=== PATIENT | male | born 1975 | race Caucasian/White ===

== ENCOUNTER 2017-05-01 09:07 | Emergency (ER) | payer OTHER ==
[~2017-05-01] VITALS: Ht 167.6 cm; Wt 70.0 kg
[2017-05-01 09:11] VITALS: TEMP 36.5; Ht 167.6 cm; Wt 70.0 kg
[2017-05-01] MEDS ORDERED: DIPHTHERIA/TETANUS/PERTUSSIS 0.5 ML SYR/VIAL IM. ONE (09:30)
--- NOTE | 2017-05-01 10:02 | DIAGNOSTIC IMAGING REPORT ---
LEFT FEMUR 2 VIEWS ROUTINE CLINICAL HISTORY: Left knee trauma, distal leg numb. Knee abrasion. COMPARISON: None FINDINGS: No acute fracture of the left femur is identified. Alignment of the left hip and knee is anatomic. IMPRESSION: No acute fracture of the left femur. Electronically signed by: Obed German M.D. 05/01/2017 10:00 AM Dictated Date/Time: 05/01/2017 10:00 AM
--- NOTE | 2017-05-01 10:03 | DIAGNOSTIC IMAGING REPORT ---
LEFT KNEE SINGLE VIEW CLINICAL HISTORY: Left knee pain status post trauma COMPARISON: None. DISCUSSION: A sunrise view of the patella is provided for interpretation. No fractures are visualized. There is no subluxation. IMPRESSION: No fractures or subluxations identified on this single sunrise view. Electronically signed by: Albert Veloz M.D. 05/01/2017 10:01 AM Dictated Date/Time: 05/01/2017 10:00 AM
--- NOTE | 2017-05-01 10:03 | DIAGNOSTIC IMAGING REPORT ---
LEFT TIBIA/FIBULA 2 VIEWS ROUTINE CLINICAL HISTORY: Left knee trauma, distal leg numb. Knee abrasion. Trauma. Pain. COMPARISON: None. DISCUSSION: The bones and joint spaces appear intact. There is no evidence of fracture, dislocation or bony disease. There is no evidence for soft tissue swelling. IMPRESSION: Negative study. Electronically signed by: Tomas Newell M.D. 05/01/2017 10:02 AM Dictated Date/Time: 05/01/2017 10:02 AM
--- NOTE | 2017-05-01 10:34 | EMERGENCY ROOM VISIT NOTE ---
History First contact with patient: 09:13 Chief Complaint: KNEEPAIN Stated Complaint: RIGHT KNEE INJURY History of Present Illness The patient is a 41 year old male who presents to the Emergency Room via private vehicle accompanied by fellow employee with complaints of "right knee injury". 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 He states that this slipped, and struck his left kneecap region pinning his leg to the target. He notes the pain as a 10/10. He is shaking from the pain. His tetanus is not up-to-date. Review of Systems A complete 6-point Review of Systems was discussed with the patient, with pertinent positives and negatives listed in the History of Present Illness. All remaining Review of Systems questions can be considered negative unless otherwise specified. Past Medical/Surgical History No pertinent past medical history. Family History No pertinent family history. Social History Smoking Status: Current Every Day Smoker Social History: Patient is currently employed. Current/Historical Medications No Active Prescriptions or Reported Meds Allergies Coded Allergies: No Known Allergies (Unverified , 05/01/17) Physical Exam Vital Signs Date Time Temp Pulse Resp B/P (MAP) Pulse Ox O2 Delivery O2 Flow Rate FiO2 05/01/17 09:11 36.5 56 18 158/78 99 Room Air Physical Exam VITAL SIGNS - Vital signs and nursing notes were reviewed. Patient is afebrile , hypertensive at 158/78, non-tachycardic and is saturating well on room air 99% . GENERAL -41-year-old male appearing his stated age who is in no acute distress. Communicates well with provider and answers questions appropriately. SKIN - Without rashes. There is a small abrasion noted to the skin overlying the left anterior patella. EXTREMITIES - No clubbing or peripheral cyanosis. No pretibial edema present. He is neurovascularly intact left lower extremity. There is tenderness to palpation overlying the left greater trochanter, left femur region, left knee and distal regions. There is near full range of motion. +5/5 strength noted in UE/LE bilaterally. Medical Decision & Procedures ER Provider Diagnostic Interpretation: LEFT FEMUR 2 VIEWS ROUTINE CLINICAL HISTORY: Left knee trauma, distal leg numb. Knee abrasion. COMPARISON: None FINDINGS: No acute fracture of the left femur is identified. Alignment of the left hip and knee is anatomic. IMPRESSION: No acute fracture of the left femur. Electronically signed by: Obed German M.D. 05/01/2017 10:00 AM Dictated Date/Time: 05/01/2017 10:00 AM LEFT KNEE SINGLE VIEW CLINICAL HISTORY: Left knee pain status post trauma COMPARISON: None. DISCUSSION: A sunrise view of the patella is provided for interpretation. No fractures are visualized. There is no subluxation. IMPRESSION: No fractures or subluxations identified on this single sunrise view. Electronically signed by: Albert Veloz M.D. 05/01/2017 10:01 AM Dictated Date/Time: 05/01/2017 10:00 AM LEFT TIBIA/FIBULA 2 VIEWS ROUTINE CLINICAL HISTORY: Left knee trauma, distal leg numb. Knee abrasion. Trauma. Pain. COMPARISON: None. DISCUSSION: The bones and joint spaces appear intact. There is no evidence of fracture, dislocation or bony disease. There is no evidence for soft tissue swelling. IMPRESSION: Negative study. Electronically signed by: Tomas Newell M.D. 05/01/2017 10:02 AM Dictated Date/Time: 05/01/2017 10:02 AM Medications Administered Medications (Trade) Dose Ordered Sig/Noe Route Start Time Stop Time Status Last Admin Dose Admin Diphtheria/ Pertussis/Tetanus Vacc (Adacel Inj) 0.5 ml ONCE ONCE IM. 05/01/17 09:30 05/01/17 09:31 DC 05/01/17 09:30 0.5 ML Medical Decision Patient was seen and evaluated as above. After taking a thorough history and physical examination radiographs were obtained of the left femur, left patella, and left tib-fib region. He states that his left brink region feels numb. He appears to be visibly shaking from the pain. He did take aspirin prior to arrival for the pain. He declines pain medication at this time. Radial graph results as above. I also personally reviewed these with the patient. No acute fracture or dislocation. There was a small abrasion over the left anterior knee , which he was provided tetanus shot. He was educated upon management today's findings. He is to follow up for the high blood pressure. He was provided a knee immobilizer, and crutches and is a follow-up is appropriate workman's compensation individual for further evaluation and management. Upon reevaluation he notes that the numbness in the left leg had disappeared, and his pain had diminished. He appears well this time for discharge. He certainly is to return with any new/concerning symptoms. I do not suspect compartment syndrome. He had excellent pulses prior to discharge. In the evaluation and treatment of this patient, the following differential diagnoses were considered: Patellar Fracture, Tibial Plateau Fracture, Distal Femur Fracture, ACL Injury, PCL Injury, Collateral Ligament Injury, Pes Anserine Bursitis, Maisonneuve Fracture. Impression Primary Impression: Knee pain Departure Information Dispostion Home / Self-Care Condition GOOD Prescriptions No Active Prescriptions or Reported Meds Referrals No Doctor, Assigned (PCP) Bill Lundberg M.D. Patient Instructions My [facility] [address] Additional Instructions You have been treated in the Emergency Department for Knee Pain. For pain control, you can use the following [id number] medicines (if >12 yo): - Regular strength (325mg/tab) Tylenol (acetaminophen) 2 tabs every 4-6 hours as needed. Do not exceed 12 tablets in a 24 hour period. Avoid taking more than 3 grams (3000 mg) of Tylenol per day. This includes any other sources of acetaminophen you may take on a regular basis. - Regular strength (200 mg/tab) Advil (ibuprofen) 1-2 tabs every 4-6 hours as needed. Do not exceed a dose of 3200 mg per day. If this is a recent injury (<24 hrs), ice can be applied to the area of pain for the first 3 days to help decrease pain and inflammation. Ice massages can be performed by freezing water in a paper cup, peeling back the cup to expose the ice and then massaging over the affected area. You have been provided the number for an Orthopaedic Surgeon. You should call this number as soon as possible to establish a follow-up visit from today's Emergency Department visit. (or the approved person from [employer]) Please follow-up with your prove Workmen's Compensation individual regarding your injury today. Keep the knee brace in place until cleared by Orthopedics. Use the crutches you have been provided to keep ALL weight off of the knee until weight bearing is tolerable. Return to the Emergency Department if your current symptoms worsen despite treatment course outlined above. Please return to the emergency department with any new/concerning symptoms.
[2017-05-01 10:51] VITALS: BP 145/77; PULSE 60; O2SAT 99
== END 2017-05-01 10:52 | disposition home or self-care (01) ==
LOC: C.EDB 09:08 → C.EDA 10:52
DX: S80.211A Abrasion, right knee, initial encounter (principal); W22.8XXA Striking against or struck by other objects, initial encounter; Y99.0 Civilian activity done for income or pay; F17.210 Nicotine dependence, cigarettes, uncomplicated; Z23 Encounter for immunization